=== PATIENT | female | born 1990 | race Caucasian/White ===

== ENCOUNTER 2018-09-03 12:23 | Inpatient (IN) | payer OTHER | END 2018-09-06 12:14 | disposition other institution (70) | LOC: YASAS 12:23 → Y6N 18:52 ==

== ENCOUNTER 2018-09-06 12:28 | Inpatient (IN) | payer OTHER | END 2018-09-06 15:22 | disposition left against medical advice (07) | LOC: YASAS 12:28 → Y3E 12:29 ==